=== PATIENT | female | born 1955 | race Caucasian/White ===

== ENCOUNTER 2021-11-17 11:07 | Day surgery (SDC) | payer OTHER ==
[~2021-11-17] VITALS: Ht 152.4 cm; Wt 86.2 kg
[2021-11-17] MEDS ORDERED: MIDAZOLAM 5 MG/5 ML VIAL ONE (12:31)
[2021-11-17] MEDS ORDERED: LIDOCAINE 2% 100 MG/5 ML UJET TP ONE (12:31)
[2021-11-17] MEDS ORDERED: fentaNYL citrate 0.05 MG/ML VIAL ONE (12:31)
[2021-11-17] MEDS ORDERED: fentaNYL citrate 0.05 MG/ML VIAL IVP ONE (13:20)
== END 2021-11-17 13:45 | disposition home or self-care (01) ==
LOC: MDS 11:07 → MMU 11:12 → MDS 13:45
PROVIDERS: ATTEND Internal Medicine Gastroenterology
DX: Z12.11 Encounter for screening for malignant neoplasm of colon (principal); K57.30 Diverticulosis of large intestine without perforation or abscess without bleeding; Z90.49 Acquired absence of other specified parts of digestive tract; Z79.899 Other long term (current) drug therapy
CPT/HCPCS: 45378; J3010; J2250